=== PATIENT | male | born 1975 | race Caucasian/White ===

== ENCOUNTER 2023-06-26 09:25 | Day surgery (SDC) | payer BC ==
[~2023-06-26] VITALS: Ht 182.9 cm; Wt 93.3 kg
[~2023-06-26 09:25] MED LIST: LR 1,000 ML IV SCH; Ondansetron 4 MG/2 ML VIAL IV PRN
--- NOTE | 2023-06-26 10:18 | NUR ---
Pt arrived with ; scheduled for colonoscopy, bowels are a light yellow color and pt can see the bottom of the toilet; VSS, BG 212 (last took ozempic Friday and glimperide last PM); 20G to RAC without incident, LR to KVO; consents reveiwed and signed, all questions answered; to await procedure.
[2023-06-26] MEDS ORDERED: AMARYL4 MG PO (10:20)
[2023-06-26] MEDS ORDERED: COZAAR100 MG PO (10:21)
[2023-06-26] MEDS ORDERED: NORVASC 10MG10 MG PO (10:21)
[2023-06-26] MEDS ORDERED: OZEMPIC1 MG/0.71 SQ (10:22)
[2023-06-26 10:23] VITALS: BP 137/90; PULSE 92; TEMP 98.7
[2023-06-26] MEDS ORDERED: Lidocaine PF 2% (20 MG/ML) 5 ML VIAL ONE (12:04)
[2023-06-26 12:52] VITALS: BP 138/104; PULSE 88; TEMP 97.4
[2023-06-26 13:07] VITALS: BP 133/96; PULSE 79
--- NOTE | 2023-06-26 13:41 | NUR ---
1252-PT ARRIVED VIA CART TO [facility] , PATIENT ALERT ON ARRIVAL. AMBULATED WITH ASSISTANCE TO RECLINER, WARM BLANKET PROVIDED. VITAL SIGNS TAKEN, VSS. PT DENIES PAIN OR NAUSEA. REPORT OBTAINED FROM [facility]. UPDATE GIVEN TO PATIENT AND FAMILY AT BEDSIDE. 1307-VSS. PT TOLERATING PO INTAKE WITHOUT COMPLAINTS, DENIES PAIN OR NAUSEA. 1310-PROVIDER AT BEDSIDE. PROCEDURE FINDINGS EXPLAINED. 1320-DISCHARGE INSTRUCTIONS REVIEWED WITH PT AND FAMILY, QUESTIONS INVITED. PATIENT CHANGED INTO CLOTHING INDEPENDENTLY. 1320-IV CATHETER DISCONTINUED, TIP INTACT. PRESSURE HELD AND BANDAGE APPLIED. 1334-PATIENT DISCHARGED HOME TO [facility] VIA WHEELCHAIR, ACCOMPANIED BY FAMILY. ALL BELONGINGS AND D/C PAPERWORK SENT WITH PT.
== END 2023-06-26 13:34 | disposition home or self-care (01) ==
LOC: SDCO 09:25
DX: Z12.11 Encounter for screening for malignant neoplasm of colon (principal)
CPT/HCPCS: J2704; J7120